=== PATIENT | male | born 1940 | race Caucasian/White ===

== ENCOUNTER → 2024-12-18 17:08 | Outpatient (BNV) | payer MEDICARE, SELFPAY | PROVIDERS: Admitting Provider Psychiatry & Neurology Forensic Psychiatry; PCP Internal Medicine; Visit Provider Psychiatry & Neurology Psychiatry | DX: F02.82 Dementia in other diseases classified elsewhere, unspecified severity, with psychotic disturbance (principal); F29 Unspecified psychosis not due to a substance or known physiological condition; F10.90 Alcohol use, unspecified, uncomplicated; R46.89 Other symptoms and signs involving appearance and behavior; R29.818 Other symptoms and signs involving the nervous system; I48.91 Unspecified atrial fibrillation; I10 Essential (primary) hypertension | CPT/HCPCS: 99232 ==

== ENCOUNTER → 2024-12-18 17:08 | Outpatient (BNV) | payer MEDICARE, SELFPAY | PROVIDERS: Admitting Provider Psychiatry & Neurology Forensic Psychiatry; PCP Internal Medicine; Visit Provider Psychiatry & Neurology Forensic Psychiatry | DX: F29 Unspecified psychosis not due to a substance or known physiological condition (principal); R41.9 Unspecified symptoms and signs involving cognitive functions and awareness; I48.91 Unspecified atrial fibrillation | CPT/HCPCS: 99231 ==

== ENCOUNTER → 2024-12-18 17:08 | Outpatient (BNV) | payer MEDICARE, SELFPAY | PROVIDERS: Admitting Provider Psychiatry & Neurology Forensic Psychiatry; PCP Internal Medicine; Visit Provider Nurse Practitioner Family | DX: I10 Essential (primary) hypertension (principal); I48.91 Unspecified atrial fibrillation | CPT/HCPCS: 99221 ==